=== PATIENT | female | born 1985 | race Caucasian/White ===

== ENCOUNTER 2018-08-16 10:31 | Inpatient (IN) | payer OTHER ==
--- NOTE | 2018-08-16 10:23 | PCM.PREANE ---
Preanesthetic Assessment - Procedure Proposed Procedure: for C section Hx HPV - Anesthesia/Transfusion/Family Hx Anesthesia History: Prior Anesthesia Without Reaction (thyroid surgery in the past under [place] without problems) Family History of Anesthesia Reaction: No Transfusion History: No Prior Transfusion(s) - Review of Systems General: No Symptoms Pulmonary: No Symptoms Cardiovascular: No Symptoms Gastrointestinal: No Symptoms Neurological: No Symptoms Other: Reports: None (hypothyroid, HPV) - Physical Assessment NPO Status Date: 08/16/18 NPO Status Time: 06:00 Pulse: 85 O2 Sat by Pulse Oximetry: 96 Respiratory Rate: 22 Blood Pressure: 140/85 Temperature: 36.5 C Height: 1.65 m Weight: 78.471 kg ASA Class: 2 Mental Status: Alert & Oriented x3 Airway Class: Mallampati = 2 Dentition: Reports: Normal Dentition Thyro-Mental Finger Breadths: 2 Mouth Opening Finger Breadths: 3 ROM/Head Extension: Full Lungs: Clear to Auscultation, Normal Respiratory Effort Cardiovascular: Regular Rate, Regular Rhythm, No Murmurs - Lab Values: HH=11/34 plts 240 - Allergies Allergies/Adverse Reactions: Allergies Allergy/AdvReac Type Severity Reaction Status Date / Time No Known Allergies Allergy Verified 08/11/18 07:39 - Blood Blood Available: Yes Product(s) Available: PRBC (type and screen) - Anesthesia Plan Pre-Op Medication Ordered: Antacids - Acknowledgements Anesthesia Type Planned: Spinal (Plan: Spinal for . [place] backup. Discussed with patient and fiance. All questions answered. Consent signed.) Pt an Appropriate Candidate for the Planned Anesthesia: Yes Alternatives and Risks of Anesthesia Discussed w Pt/Guardian: Yes Pt/Guardian Understands and Agrees with Anesthesia Plan: Yes PreAnesthesia Questionnaire Gastrointestinal History: Reports: Other (See Below) Other Gastrointestinal History: occ heartburn only during Endocrine/Metabolic History: Reports: Hypothyroidism - Past Surgical History Head Surgeries/Procedures: Reports: None Endocrine Surgical History: Reports: Thyroidectomy - SUBSTANCE USE Smoking Status *Q: Never Smoker Recreational Drug Use History: No - HOME MEDS Home Medications: Home Meds Levothyroxine Sodium [Synthroid] 1 tab PO DAILY 08/11/18 [History] PNV95/Ferrous Fumarate/FA [ Vitamin Tablet] 1 tab PO DAILY 08/11/18 [ History]
[2018-08-16] MEDS ORDERED: ceFAZolin 2 GM in Premix Bag 1 BAG IV ONE (11:05)
[2018-08-16] MEDS ORDERED: Sodium Chloride 0.9% 10 ML Syringe FLUSH PRN (11:05)
[2018-08-16] MEDS ORDERED: Citric Acid/Sodium Citrate Solution 30 ML Cup PO ONE (11:05)
[2018-08-16] MEDS ORDERED: Sodium Chloride 0.9% 2.5 ML Syringe FLUSH PRN (11:05)
[2018-08-16] MEDS ORDERED: Oxytocin/0.9 % Sodium Chloride 30 UNIT/500 ML BAG IV SCH (11:15)
[2018-08-16] MEDS ORDERED: Lactated Ringers 1,000 ML IV SCH ×2 (11:15→13:00)
[2018-08-16] MEDS ORDERED: Morphine PF 10 MG/10 ML SDV ONE (11:29)
[2018-08-16] MEDS ORDERED: fentaNYL 100 MCG/2 ML SDV ONE (11:29)
[2018-08-16] MEDS ORDERED: Propofol 200 MG/20 ML SDV ONE (11:29)
[2018-08-16] MEDS ORDERED: Midazolam 1 MG/ML 2 ML SDV ONE (11:29)
[2018-08-16] MEDS ORDERED: Ondansetron 4 MG/2 ML SDV ONE (11:30)
[2018-08-16] MEDS ORDERED: Phenylephrine 1% 10 MG/ML SDV ONE (11:30)
[2018-08-16] MEDS ORDERED: Oxytocin 10 Units/1 ML SDV ONE ×4 (11:30)
[2018-08-16] MEDS ORDERED: Aluminum Hydroxide/Magnesium Hydroxide/Simethicone Susp 30 ML Cup PO PRN (12:46)
[2018-08-16] MEDS ORDERED: Lanolin 100% Cream 7 GM Tube TOP PRN (12:46)
[2018-08-16] MEDS ORDERED: Acetaminophen/oxyCODONE 325-5 MG Tab PO PRN (12:46)
[2018-08-16] MEDS ORDERED: Ondansetron 4 MG/2 ML SDV IVPUSH PRN (12:46)
[2018-08-16] MEDS ORDERED: Bisacodyl 10 MG Supp RECTAL PRN (12:46)
[2018-08-16] MEDS ORDERED: diphenhydrAMINE 50 MG/ML SDV IVPUSH PRN (12:46)
[2018-08-16] MEDS ORDERED: Nalbuphine 10 MG/1 ML Vial IVPUSH PRN (12:48)
--- NOTE | 2018-08-16 12:52 | PCM.OPNOTE ---
- General Post-Op/Procedure Note Date of Surgery/Procedure: 08/16/18 Operative Procedure(s): Primary LTCS Findings: Vaible male APGARs 8, 9 weight 2490 gm. Intact placenta previa with 3 V cord. Normal appearing pelvis. Pre Op Diagnosis: 37 week IUP. Placenta previa. Polyhydramnios Post-Op Diagnosis: Same Anesthesia Technique: Spinal Primary Surgeon: Piper Burns Fluid Replacement, Intraop: 2,400 EBL in mLs: 450 Complications: none known Condition: Good
[2018-08-16] MEDS: Ketorolac 30 MG/ML SDV IVPUSH SCH ×2 (12:59→19:26)
[2018-08-16] MEDS ORDERED: Meperidine PF 25 MG/ML Syringe IVPUSH SCH (13:00)
[2018-08-16] MEDS ORDERED: Ondansetron 4 MG/2 ML SDV IVPUSH SCH (13:00)
--- NOTE | 2018-08-16 15:13 | PCM48HPAN ---
Post Anesthesia Note - EVALUATION WITHIN 48HRS OF ANESTHETIC Vital Signs in Normal Range: Yes Patient Participated in Evaluation: Yes Respiratory Function Stable: Yes Airway Patent: Yes Cardiovascular Function Stable: Yes Hydration Status Stable: Yes Pain Control Satisfactory: Yes Nausea and Vomiting Control Satisfactory: Yes Pulse Rate: 85 Resp Rate: 18 Temperature: 36.5 C Blood Pressure: 140/85 - COMMENTS/OBSERVATIONS Free Text/Narrative:: awake, alert, vitals stable. spinal resolving--moving legs. Receiving nalbuphine for pain at present. Doing well.
[2018-08-16] MEDS: Simethicone 80 MG Tab.Chew PO SCH (19:26)
--- NOTE | 2018-08-16 19:29 | OR ---
SURGEON: Piper Burns M.D. DATE OF PROCEDURE: 08/16/2018 PREOPERATIVE DIAGNOSES: 1. Thirty-seven week intrauterine . 2. Placenta previa. 3. Polyhydramnios. POSTOPERATIVE DIAGNOSES: 1. Thirty-seven week intrauterine . 2. Placenta previa. 3. Polyhydramnios. PROCEDURE: Primary low transverse section. ANESTHESIA: Spinal. ESTIMATED BLOOD LOSS: 450 mL. FLUIDS: 2400 mL crystalloid. FINDINGS: Viable male with Apgars 8 at one minute, 9 at five minutes. Weight of 2450 g, posterior placenta previa delivered with three-vessel cord. There was nuchal cord x2 that was reduced manually. Clear fluid with polyhydramnios noted. DISPOSITION: The patient to PACU, infant to nursery in stable condition. PROCEDURE IN DETAIL: Tamiko is a 32-year-old, G1, P0, at approximately 37 weeks gestational age, who presents today for scheduled primary section due to placenta previa. It is a posterior previa. Risks of the procedure have been discussed with her. Proper consent was obtained. The patient was taken to the operating room where she underwent spinal anesthetic and was then placed in the dorsal supine position with a leftward tilt. SCDs to lower extremities, Martins to gravity, and was prepped and draped in the usual sterile fashion. A time-out was performed. Anesthesia was tested and found to be adequate. A Pfannenstiel skin incision was now created and carried down to the level of the rectus fascia, which was incised in the midline, lateralized on either side sharply and bluntly. The superior aspect of the fascia was tented upward, dissected sharply and bluntly away from the underlying muscle. In a similar aspect, it was performed with the inferior aspect of the fascia. Rectus muscle was in midline. Peritoneum was entered. The rectus muscles and peritoneum were now lateralized bluntly. Uterine position and position palpated. A self-retaining retractor was gently placed. Uterovesical reflection was visualized. Bladder flap was created sharply and mobilized the bladder away from the lower uterine segment. Low transverse hysterotomy was now performed. Uterine cavity was entered using a blunt-end scalpel. Amniotomy was performed. A large amount of clear fluid was returned. Hysterotomy was lateralized bluntly. The 's head was delivered followed by anterior shoulder, posterior shoulder, and remainder of the body without difficulty. Nuchal cord x2 was noted. This reduced manually. The 's oropharynx and nares were bulb suctioned. Cord was clamped x2 and cut. was handed off to attending nursing staff. Cord arterial, cord venous, and cord blood samples were obtained. The placenta was now delivered. It does appear to be intact. No evidence of accreta. Uterine cavity was cleared of all clot and debris. Hysterotomy was repaired using 0 Vicryl in a continuous running locked fashion followed by a re-imbricating layer. Three areas of oozing were briefly ligated with [id number] sutures. Hemostasis thereafter evident. Posterior aspect of the uterus was inspected. No defects or hematomas found be forming. Tubes and ovaries appeared normal. The region was well irrigated, suction dried. Uterus was returned to the abdominal cavity. Colonic gutters were cleared of all clot and debris, well irrigated and suction dried. Hysterotomy was once again inspected and found to be hemostatic. The self-retaining retractor was now gently removed. Bladder blade was placed. Hysterotomy was once again inspected and found to be hemostatic. Rectus muscles and peritoneum were now reapproximated using 0 Vicryl in an inverted mattress suture technique. Anterior aspect of the muscle, posterior aspect of fascia closely inspected. Any areas of oozing were cauterized. The rectus fascia was now reapproximated using 0 Vicryl in continuous running fashion beginning laterally on each side and meeting in the midline. Subcutaneous tissue was well irrigated and suction dried. Any areas of oozing were cauterized. The skin edges were reapproximated using 3-0 Vicryl on a Virgil needle in a subcuticular fashion followed by half-inch Steri-Strips and Mastisol. Uterus remained firm. Sponge, instrument, and needle counts were correct x2. The patient tolerated the procedure well. She will go to PACU in stable condition and infant to nursery. MELI / MALLY /[id number]
[2018-08-16] MEDS: Docusate Sodium 100 MG Cap PO SCH (21:15)
[2018-08-17] MEDS: Simethicone 80 MG Tab.Chew PO SCH ×4 (00:27→19:36)
[2018-08-17] MEDS: Ketorolac 30 MG/ML SDV IVPUSH SCH ×3 (00:27→12:21)
--- NOTE | 2018-08-17 08:56 | PCM.PNPP ---
- General Info Date of Service: 08/17/18 Functional Status: Reports: Pain Controlled, Tolerating Diet, Ambulating - Review of Systems General: Denies: Fever, Weakness Pulmonary: Denies: Shortness of Breath Cardiovascular: Denies: Chest Pain, Palpitations, Lightheadedness Gastrointestinal: Denies: Nausea, Vomiting Genitourinary: Denies: Flank Pain Musculoskeletal: Reports: No Symptoms Skin: Reports: No Symptoms Neurological: Reports: No Symptoms Psychiatric: Reports: No Symptoms - General Info Date of Service: 08/17/18 - Patient Data Vital Signs - Most Recent: Last Vital Signs Temp 36.3 C 08/16/18 21:00 Pulse 72 08/16/18 15:30 Resp 17 08/17/18 06:00 BP 101/72 08/17/18 04:00 Pulse Ox 97 08/17/18 06:00 Weight - Most Recent: 78.471 kg I&O - Last 24 Hours: Intake & Output 08/16/18 08/17/18 08/17/18 22:59 06:59 14:59 Intake Total 2 Output Total 900 Balance 2 -900 Lab Results - Last 24 Hours: Laboratory Results - last 24 hr 08/16/18 08/16/18 08/16/18 Range/Units 11:17 11:17 12:10 WBC 10.82 (4.0-11.0) K/uL RBC 3.87 L (4.30-5.90) M/uL Hgb 11.7 L (12.0-16.0) g/dL Hct 34.3 L (36.0-46.0) % MCV 88.6 (80.0-98.0) fL MCH 30.2 (27.0-32.0) pg MCHC 34.1 (31.0-37.0) g/dL RDW Std Deviation 45.1 (28.0-62.0) fl RDW Coeff of Devon 14 (11.0-15.0) % Plt Count 240 (150-400) K/uL MPV 9.70 (7.40-12.00) fL Nucleated RBC % 0.0 /100WBC Nucleated RBCs # 0 K/uL Cord ABG pH 7.302 (7.18-7.38) Cord ABG Base Excess -4 (-10--2) Cord VBG pH 7.367 (7.25-7.45) Cord VBG Base Excess -4 (-10--2) Blood Type O NEGATIVE Antibody Screen NEGATIVE Screen (NEGATIVE) RhIG Candidate? Rhogam Indicated 08/16/18 08/17/18 Range/Units 14:10 06:06 WBC (4.0-11.0) K/uL RBC (4.30-5.90) M/uL Hgb 10.3 L (12.0-16.0) g/dL Hct 30.7 L (36.0-46.0) % MCV (80.0-98.0) fL MCH (27.0-32.0) pg MCHC (31.0-37.0) g/dL RDW Std Deviation (28.0-62.0) fl RDW Coeff of Devon (11.0-15.0) % Plt Count (150-400) K/uL MPV (7.40-12.00) fL Nucleated RBC % /100WBC Nucleated RBCs # K/uL Cord ABG pH (7.18-7.38) Cord ABG Base Excess (-10--2) Cord VBG pH (7.25-7.45) Cord VBG Base Excess (-10--2) Blood Type Antibody Screen Screen NEGATIVE (NEGATIVE) RhIG Candidate? YES Rhogam Indicated YES, BABY RH POS H Med Orders - Current: Current Medications Al Hydroxide/Mg Hydroxide (Mag-Al Plus) 30 ml PO Q8H PRN PRN Reason: Heartburn Bisacodyl (Dulcolax) 10 mg RECTAL ONETIME PRN PRN Reason: Constipation Diphenhydramine HCl (Benadryl) 25 mg IVPUSH Q6H PRN PRN Reason: Itching or Nausea Docusate Sodium (Colace) 100 mg PO BID [facility] Last Admin: 08/16/18 21:15 Dose: 100 mg Emollient Ointment (Lansinoh Hpa) 0 gm TOP ASDIRECTED PRN PRN Reason: Sore Nipples Last Admin: 08/16/18 14:50 Dose: 7 gm Lactated Ringer's (Ringers, Lactated) 1,000 mls @ 500 mls/hr IV BOLUS [facility] Last Admin: 08/16/18 11:00 Dose: 500 mls/hr Oxytocin/Sodium Chloride (Oxytocin 30 Unit/500 Ml-Ns) 30 unit in 500 mls @ 250 mls/hr IV TITRATE [facility] Lactated Ringer's (Ringers, Lactated) 1,000 mls @ 125 mls/hr IV ASDIRECTED [facility] Last Admin: 08/16/18 14:51 Dose: 125 mls/hr Ibuprofen (Motrin) 800 mg PO Q8H PRN PRN Reason: mild pain or fever Ketorolac Tromethamine (Toradol) 30 mg IVPUSH Q6H [facility] Stop: 08/17/18 13:01 Last Admin: 08/17/18 07:46 Dose: 30 mg Meperidine HCl (Demerol) 12.5 mg IVPUSH .ONCE [facility] Nalbuphine HCl (Nubain) 5 mg IVPUSH Q3H PRN PRN Reason: Pruritis Stop: 08/17/18 12:49 Last Admin: 08/16/18 14:49 Dose: 5 mg Ondansetron HCl (Zofran) 4 mg IVPUSH Q4H PRN PRN Reason: Nausea/Vomiting Ondansetron HCl (Zofran) 4 mg IVPUSH .ONCE [facility] Oxycodone/Acetaminophen (Percocet 325-5 Mg) 1 tab PO Q4H PRN PRN Reason: Pain (moderate 4-6) Oxycodone/Acetaminophen (Percocet 325-5 Mg) 2 tab PO Q4H PRN PRN Reason: Pain (moderate 4-6) Simethicone (Simethicone) 160 mg PO QID [facility] Last Admin: 08/17/18 05:51 Dose: 160 mg Sodium Chloride (Saline Flush) 10 ml FLUSH ASDIRECTED PRN PRN Reason: Keep Vein Open Sodium Chloride (Saline Flush) 2.5 ml FLUSH ASDIRECTED PRN PRN Reason: Keep Vein Open Discontinued Medications Citric Acid/Sodium Citrate (Bicitra Solution) 30 ml PO ONETIME ONE Stop: 08/16/18 11:06 Last Admin: 08/16/18 11:43 Dose: 30 ml Fentanyl (Sublimaze) Confirm Administered Dose 100 mcg .ROUTE .STK-MED ONE Stop: 08/16/18 11:30 Cefazolin Sodium/Dextrose 2 gm (/ Premix) 50 mls @ 100 mls/hr IV ONETIME ONE Stop: 08/16/18 11:34 Midazolam HCl (Versed 1 Mg/Ml) Confirm Administered Dose 2 mg .ROUTE .STK-MED ONE Stop: 08/16/18 11:30 Morphine Sulfate (Duramorph Pf) Confirm Administered Dose 10 mg .ROUTE .STK-MED ONE Stop: 08/16/18 11:30 Ondansetron HCl (Zofran) Confirm Administered Dose 4 mg .ROUTE .STK-MED ONE Stop: 08/16/18 11:31 Oxytocin (Pitocin) Confirm Administered Dose 10 unit .ROUTE .STK-MED ONE Stop: 08/16/18 11:31 Oxytocin (Pitocin) Confirm Administered Dose 10 unit .ROUTE .STK-MED ONE Stop: 08/16/18 11:31 Oxytocin (Pitocin) Confirm Administered Dose 10 unit .ROUTE .STK-MED ONE Stop: 08/16/18 11:31 Oxytocin (Pitocin) Confirm Administered Dose 10 unit .ROUTE .STK-MED ONE Stop: 08/16/18 11:31 Phenylephrine HCl (Gildardo-Synephrine) Confirm Administered Dose 10 mg .ROUTE .STK- MED ONE Stop: 08/16/18 11:31 Propofol (Diprivan 20 Ml) Confirm Administered Dose 200 mg .ROUTE .STK-MED ONE Stop: 08/16/18 11:30 - Interaction Support Person: Significant Other - Recovery Exam Fundal Tone: Firm Fundal Level: At Umbilicus Fundal Placement: Midline Lochia Amount: Scant Lochia Color: Rubra/Red Perineum Description: Intact, Minimal Bruising/Swelling Episiotomy/Laceration: None Bladder Status: Indwelling Catheter in Place Urinary Elimination: Indwelling Catheter - Exam General: Alert, Oriented Lungs: Normal Respiratory Effort Cardiovascular: Regular Rate, Regular Rhythm GI/Abdominal Exam: Soft, No Distention Extremities: Pedal Edema (trace). No: Maricel's Sign Skin: Warm, Dry, Intact Wound/Incisions: Healing Well, No Drainage. No: Erythema Neurological: No New Focal Deficit Psy/Mental Status: Alert, Normal Affect, Normal Mood - Problem List & Annotations (1) delivery delivered SNOMED Code(s): 166803833 Code(s): O82 - ENCOUNTER FOR DELIVERY WITHOUT INDICATION Status: Acute Current Visit: Yes - Problem List Review Problem List Initiated/Reviewed/Updated: Yes - My Orders Last 24 Hours: My Active Orders 08/16/18 11:05 Patient Status [ADT] Routine Notify Provider Vital Signs [RC] PRN Procedure Site Prep Instruct [RC] ASDIRECTED Up ad Silvia [RC] ASDIRECTED Vital Signs [RC] PER UNIT ROUTINE Sodium Chloride 0.9% [Saline Flush] 10 ml FLUSH ASDIRECTED PRN Sodium Chloride 0.9% [Saline Flush] 2.5 ml FLUSH ASDIRECTED PRN Peripheral IV Insertion Adult [OM.PC] Routine Schedule Procedure [COMM] Per Unit Routine Resuscitation Status Routine 08/16/18 11:15 Lactated Ringers [Ringers, Lactated] 1,000 ml IV BOLUS Oxytocin/0.9 % Sodium Chloride [Oxytocin 30 Unit/500 ML-NS] 30 unit in 500 ml IV TITRATE 08/16/18 12:46 Notify Provider Intake and Out [RC] ASDIRECTED Notify Provider Vital Signs [RC] ASDIRECTED Acetaminophen/oxyCODONE [Percocet 325-5 MG] 1 tab PO Q4H PRN Acetaminophen/oxyCODONE [Percocet 325-5 MG] 2 tab PO Q4H PRN Alum Hydrox/Mag Hydrox/Simeth [Mag-Al Plus] 30 ml PO Q8H PRN Bisacodyl [Dulcolax] 10 mg RECTAL ONETIME PRN Ibuprofen [Motrin] 800 mg PO Q8H PRN Lanolin [Lansinoh HPA] See Dose Instructions TOP ASDIRECTED PRN Ondansetron [Zofran] 4 mg IVPUSH Q4H PRN diphenhydrAMINE [Benadryl] 25 mg IVPUSH Q6H PRN Heat Therapy [OM.PC] Routine Ice Therapy [OM.PC] Routine 08/16/18 12:47 Patient Status [ADT] Routine Ambulate [RC] PER UNIT ROUTINE Communication Order [RC] PER UNIT ROUTINE Communication Order [RC] PER UNIT ROUTINE Communication Order [RC] Per Unit Routine May Shower [RC] ASDIRECTED RT Incentive Spirometry [RC] Q2HWA Vital Signs [RC] PER UNIT ROUTINE Assess Lochia [WOMSER] Per Unit Routine Assess Uterine Involution [WOMSER] Per Unit Routine Breast Pump [WOMSER] Per Unit Routine Peripheral IV Discontinue [OM.PC] Routine Sequential Compression Device [OM.PC] Per Unit Routine 08/16/18 13:00 Ketorolac [Toradol] 30 mg IVPUSH Q6H Lactated Ringers [Ringers, Lactated] 1,000 ml IV ASDIRECTED 08/16/18 18:00 Simethicone 160 mg PO QID 08/16/18 21:00 Docusate Sodium [Colace] 100 mg PO BID 08/16/18 Lunch Regular Diet [DIET] - Assessment Assessment:: POD 1 status post Primary LTCS - Plan Plan:: Continue postoperative cares, ambulate halls. May shower.
[2018-08-17] MEDS: Docusate Sodium 100 MG Cap PO SCH ×2 (16:19→21:18)
[2018-08-17] MEDS: Acetaminophen/oxyCODONE 325-5 MG Tab PO PRN ×2 (19:37→23:40)
[2018-08-17] MEDS: Ibuprofen 800 MG Tab PO PRN (21:18)
[2018-08-18] MEDS: Simethicone 80 MG Tab.Chew PO SCH ×4 (01:17→17:16)
[2018-08-18] MEDS: Acetaminophen/oxyCODONE 325-5 MG Tab PO PRN ×4 (04:28→17:17)
--- NOTE | 2018-08-18 08:04 | PCM.PNPP ---
<Jessy Hinson - Last Filed: 08/18/18 08:03> - General Info Date of Service: 08/18/18 Functional Status: Reports: Pain Controlled, Tolerating Diet, Ambulating, Urinating - Review of Systems General: Denies: Fever, Weakness, Fatigue Pulmonary: Denies: Shortness of Breath, Pleuritic Chest Pain, Cough Cardiovascular: Denies: Chest Pain, Palpitations, Dyspnea on Exertion Gastrointestinal: Denies: Abdominal Pain Genitourinary: Denies: Dysuria - General Info Date of Service: 08/18/18 - Patient Data Vital Signs - Most Recent: Last Vital Signs Temp 36.1 C 08/18/18 05:00 Pulse 76 08/18/18 05:00 Resp 17 08/18/18 05:00 BP 119/72 08/18/18 05:00 Pulse Ox 100 08/18/18 05:00 Weight - Most Recent: 78.471 kg Med Orders - Current: Current Medications Al Hydroxide/Mg Hydroxide (Mag-Al Plus) 30 ml PO Q8H PRN PRN Reason: Heartburn Bisacodyl (Dulcolax) 10 mg RECTAL ONETIME PRN PRN Reason: Constipation Diphenhydramine HCl (Benadryl) 25 mg IVPUSH Q6H PRN PRN Reason: Itching or Nausea Docusate Sodium (Colace) 100 mg PO BID [facility] Last Admin: 08/17/18 21:18 Dose: 100 mg Emollient Ointment (Lansinoh Hpa) 0 gm TOP ASDIRECTED PRN PRN Reason: Sore Nipples Last Admin: 08/16/18 14:50 Dose: 7 gm Lactated Ringer's (Ringers, Lactated) 1,000 mls @ 500 mls/hr IV BOLUS [facility] Last Admin: 08/16/18 11:00 Dose: 500 mls/hr Oxytocin/Sodium Chloride (Oxytocin 30 Unit/500 Ml-Ns) 30 unit in 500 mls @ 250 mls/hr IV TITRATE [facility] Lactated Ringer's (Ringers, Lactated) 1,000 mls @ 125 mls/hr IV ASDIRECTED [facility] Last Admin: 08/16/18 14:51 Dose: 125 mls/hr Ibuprofen (Motrin) 800 mg PO Q8H PRN PRN Reason: mild pain or fever Last Admin: 08/17/18 21:18 Dose: 800 mg Meperidine HCl (Demerol) 12.5 mg IVPUSH .ONCE [facility] Ondansetron HCl (Zofran) 4 mg IVPUSH Q4H PRN PRN Reason: Nausea/Vomiting Ondansetron HCl (Zofran) 4 mg IVPUSH .ONCE [facility] Oxycodone/Acetaminophen (Percocet 325-5 Mg) 1 tab PO Q4H PRN PRN Reason: Pain (moderate 4-6) Last Admin: 08/18/18 04:28 Dose: 1 tab Oxycodone/Acetaminophen (Percocet 325-5 Mg) 2 tab PO Q4H PRN PRN Reason: Pain (moderate 4-6) Simethicone (Simethicone) 160 mg PO QID [facility] Last Admin: 08/18/18 05:53 Dose: 160 mg Sodium Chloride (Saline Flush) 10 ml FLUSH ASDIRECTED PRN PRN Reason: Keep Vein Open Sodium Chloride (Saline Flush) 2.5 ml FLUSH ASDIRECTED PRN PRN Reason: Keep Vein Open Discontinued Medications Citric Acid/Sodium Citrate (Bicitra Solution) 30 ml PO ONETIME ONE Stop: 08/16/18 11:06 Last Admin: 08/16/18 11:43 Dose: 30 ml Fentanyl (Sublimaze) Confirm Administered Dose 100 mcg .ROUTE .STK-MED ONE Stop: 08/16/18 11:30 Cefazolin Sodium/Dextrose 2 gm (/ Premix) 50 mls @ 100 mls/hr IV ONETIME ONE Stop: 08/16/18 11:34 Ketorolac Tromethamine (Toradol) 30 mg IVPUSH Q6H [facility] Stop: 08/17/18 13:01 Last Admin: 08/17/18 12:21 Dose: 30 mg Midazolam HCl (Versed 1 Mg/Ml) Confirm Administered Dose 2 mg .ROUTE .STK-MED ONE Stop: 08/16/18 11:30 Morphine Sulfate (Duramorph Pf) Confirm Administered Dose 10 mg .ROUTE .STK-MED ONE Stop: 08/16/18 11:30 Nalbuphine HCl (Nubain) 5 mg IVPUSH Q3H PRN PRN Reason: Pruritis Stop: 08/17/18 12:49 Last Admin: 01/22/19 14:49 Dose: 5 mg Ondansetron HCl (Zofran) Confirm Administered Dose 4 mg .ROUTE .STK-MED ONE Stop: 08/16/18 11:31 Oxytocin (Pitocin) Confirm Administered Dose 10 unit .ROUTE .STK-MED ONE Stop: 08/16/18 11:31 Oxytocin (Pitocin) Confirm Administered Dose 10 unit .ROUTE .STK-MED ONE Stop: 08/16/18 11:31 Oxytocin (Pitocin) Confirm Administered Dose 10 unit .ROUTE .STK-MED ONE Stop: 08/16/18 11:31 Oxytocin (Pitocin) Confirm Administered Dose 10 unit .ROUTE .STK-MED ONE Stop: 08/16/18 11:31 Phenylephrine HCl (Gildardo-Synephrine) Confirm Administered Dose 10 mg .ROUTE .STK- MED ONE Stop: 08/16/18 11:31 Propofol (Diprivan 20 Ml) Confirm Administered Dose 200 mg .ROUTE .STK-MED ONE Stop: 08/16/18 11:30 - Interaction Infant Disposition, : [place] in Room with Family Interaction: Holding Infant Feeding: Attempted ; Nursed Fair/Poor, Encouraged to Breastfeed Support Person: Significant Other - Recovery Exam Fundal Tone: Firm Fundal Level: 1 Fingerbreadths Below Umbilicus Fundal Placement: Midline Lochia Amount: Scant Lochia Color: Rubra/Red Perineum Description: Intact, Minimal Bruising/Swelling Episiotomy/Laceration: None Bladder Status: Voiding Urinary Elimination: Indwelling Catheter - Exam Neck: Supple Lungs: Clear to Auscultation, Normal Respiratory Effort Cardiovascular: Regular Rate, Regular Rhythm GI/Abdominal Exam: Normal Bowel Sounds, Soft, Non-Tender, No Distention, No Mass Extremities: Normal Inspection, Non-Tender, Normal Capillary Refill, Pedal Edema (trace) Skin: Warm, Dry, Intact - Problem List Review Problem List Initiated/Reviewed/Updated: Yes - Assessment Assessment:: POD 2 status post Primary LTCS - Plan Plan:: Discharge instructions reviewed. Pelvic rest for 6 weeks. Rx for Percocet to use as needed for pain. Continue PNV while breast feeding. No lifting greater than 15lbs for 6 weeks. Instructed patient to call if she develops fever greater than 101 or bleeding through a large pad an hour. F/U with [facility] in 2 and 6 weeks. <Piper Burns R - Last Filed: 08/18/18 08:58> - Patient Data Vital Signs - Most Recent: Last Vital Signs Temp 36.1 C 08/18/18 05:00 Pulse 76 08/18/18 05:00 Resp 17 08/18/18 05:00 BP 119/72 08/18/18 05:00 Pulse Ox 100 08/18/18 05:00 Med Orders - Current: Current Medications Al Hydroxide/Mg Hydroxide (Mag-Al Plus) 30 ml PO Q8H PRN PRN Reason: Heartburn Bisacodyl (Dulcolax) 10 mg RECTAL ONETIME PRN PRN Reason: Constipation Diphenhydramine HCl (Benadryl) 25 mg IVPUSH Q6H PRN PRN Reason: Itching or Nausea Docusate Sodium (Colace) 100 mg PO BID [facility] Last Admin: 08/18/18 08:30 Dose: 100 mg Emollient Ointment (Lansinoh Hpa) 0 gm TOP ASDIRECTED PRN PRN Reason: Sore Nipples Last Admin: 08/16/18 14:50 Dose: 7 gm Lactated Ringer's (Ringers, Lactated) 1,000 mls @ 500 mls/hr IV BOLUS [facility] Last Admin: 08/16/18 11:00 Dose: 500 mls/hr Oxytocin/Sodium Chloride (Oxytocin 30 Unit/500 Ml-Ns) 30 unit in 500 mls @ 250 mls/hr IV TITRATE [facility] Lactated Ringer's (Ringers, Lactated) 1,000 mls @ 125 mls/hr IV ASDIRECTED [facility] Last Admin: 08/16/18 14:51 Dose: 125 mls/hr Ibuprofen (Motrin) 800 mg PO Q8H PRN PRN Reason: mild pain or fever Last Admin: 08/18/18 08:28 Dose: 800 mg Meperidine HCl (Demerol) 12.5 mg IVPUSH .ONCE [facility] Ondansetron HCl (Zofran) 4 mg IVPUSH Q4H PRN PRN Reason: Nausea/Vomiting Ondansetron HCl (Zofran) 4 mg IVPUSH .ONCE [facility] Oxycodone/Acetaminophen (Percocet 325-5 Mg) 1 tab PO Q4H PRN PRN Reason: Pain (moderate 4-6) Last Admin: 08/18/18 08:30 Dose: 1 tab Oxycodone/Acetaminophen (Percocet 325-5 Mg) 2 tab PO Q4H PRN PRN Reason: Pain (moderate 4-6) Simethicone (Simethicone) 160 mg PO QID [facility] Last Admin: 08/18/18 05:53 Dose: 160 mg Sodium Chloride (Saline Flush) 10 ml FLUSH ASDIRECTED PRN PRN Reason: Keep Vein Open Sodium Chloride (Saline Flush) 2.5 ml FLUSH ASDIRECTED PRN PRN Reason: Keep Vein Open Discontinued Medications Citric Acid/Sodium Citrate (Bicitra Solution) 30 ml PO ONETIME ONE Stop: 08/16/18 11:06 Last Admin: 08/16/18 11:43 Dose: 30 ml Fentanyl (Sublimaze) Confirm Administered Dose 100 mcg .ROUTE .STK-MED ONE Stop: 08/16/18 11:30 Cefazolin Sodium/Dextrose 2 gm (/ Premix) 50 mls @ 100 mls/hr IV ONETIME ONE Stop: 08/16/18 11:34 Ketorolac Tromethamine (Toradol) 30 mg IVPUSH Q6H [facility] Stop: 08/17/18 13:01 Last Admin: 08/17/18 12:21 Dose: 30 mg Midazolam HCl (Versed 1 Mg/Ml) Confirm Administered Dose 2 mg .ROUTE .STK-MED ONE Stop: 08/16/18 11:30 Morphine Sulfate (Duramorph Pf) Confirm Administered Dose 10 mg .ROUTE .STK-MED ONE Stop: 08/16/18 11:30 Nalbuphine HCl (Nubain) 5 mg IVPUSH Q3H PRN PRN Reason: Pruritis Stop: 08/17/18 12:49 Last Admin: 08/16/18 14:49 Dose: 5 mg Ondansetron HCl (Zofran) Confirm Administered Dose 4 mg .ROUTE .STK-MED ONE Stop: 08/16/18 11:31 Oxytocin (Pitocin) Confirm Administered Dose 10 unit .ROUTE .STK-MED ONE Stop: 08/16/18 11:31 Oxytocin (Pitocin) Confirm Administered Dose 10 unit .ROUTE .STK-MED ONE Stop: 08/16/18 11:31 Oxytocin (Pitocin) Confirm Administered Dose 10 unit .ROUTE .STK-MED ONE Stop: 08/16/18 11:31 Oxytocin (Pitocin) Confirm Administered Dose 10 unit .ROUTE .STK-MED ONE Stop: 08/16/18 11:31 Phenylephrine HCl (Gildardo-Synephrine) Confirm Administered Dose 10 mg .ROUTE .STK- MED ONE Stop: 08/16/18 11:31 Propofol (Diprivan 20 Ml) Confirm Administered Dose 200 mg .ROUTE .STK-MED ONE Stop: 08/16/18 11:30 - Problem List & Annotations (1) delivery delivered SNOMED Code(s): 431559511 Code(s): O82 - ENCOUNTER FOR DELIVERY WITHOUT INDICATION Status: Acute Current Visit: Yes - Plan Plan:: Patient seen and examined-agree with above
[2018-08-18] MEDS: Ibuprofen 800 MG Tab PO PRN (08:28)
[2018-08-18] MEDS: Docusate Sodium 100 MG Cap PO SCH (08:30)
[2018-08-18 16:32] VITALS: BP 116/72
== END 2018-08-18 16:25 | disposition home or self-care (01) | DRG 787 ==
LOC: MW.OB 10:31
PROVIDERS: ADMIT Obstetrics & Gynecology; ATTEND Obstetrics & Gynecology
PROC: 10D00Z1 Extraction of Products of Conception, Low, Open Approach (ICD-10-PCS; principal; 2018-08-16)
PROC: 6A550ZT Pheresis of Cord Blood Stem Cells, Single (ICD-10-PCS; principal; 2018-08-16)
PROC: 3E0234Z Introduction of Serum, Toxoid and Vaccine into Muscle, Percutaneous Approach (ICD-10-PCS; 2018-08-16)
DX: O44.03 Complete placenta previa NOS or without hemorrhage, third trimester (principal); O98.32 Other infections with a predominantly sexual mode of transmission complicating childbirth; O99.284 Endocrine, nutritional and metabolic diseases complicating childbirth; O40.3XX0 Polyhydramnios, third trimester, not applicable or unspecified; A63.0 Anogenital (venereal) warts; Z3A.37 37 weeks gestation of pregnancy; Z37.0 Single live birth; E89.0 Postprocedural hypothyroidism; O26.893 Other specified pregnancy related conditions, third trimester; Z67.41 Type O blood, Rh negative; Z79.899 Other long term (current) drug therapy
CPT/HCPCS: 36415; 59025; 82803; 85014; 85018; 85027; 85460; 86850; 86900; 86901; A9270-GY; J1885; J2250; J2270; J2300; J2370; J2405; J2590; J2704; J2792; J3010; J7120

== ENCOUNTER 2021-05-05 05:13 | Inpatient (IN) | payer BC ==
[2021-05-05] MEDS: Lactated Ringers 1,000 ML IV SCH ×3 (05:40→07:25)
[2021-05-05] MEDS ORDERED: Citric Acid/Sodium Citrate Solution 30 ML Cup PO ONE (06:36)
[2021-05-05] MEDS ORDERED: ceFAZolin 2 GM in Premix Bag 1 BAG IV ONE (06:36)
[2021-05-05] MEDS ORDERED: Sodium Chloride 0.9% 2.5 ML Syringe FLUSH PRN (06:36)
[2021-05-05] MEDS ORDERED: Sodium Chloride 0.9% 10 ML Syringe FLUSH PRN (06:36)
[2021-05-05] MEDS ORDERED: Sodium Chloride 0.9% 10 ML SDV IV PRN (06:36)
[2021-05-05] MEDS ORDERED: Oxytocin/0.9 % Sodium Chloride 30 UNIT/500 ML BAG IV SCH (06:45)
[2021-05-05] MEDS ORDERED: Morphine PF 10 MG/10 ML SDV ONE (07:28)
--- NOTE | 2021-05-05 07:57 | PCM.PREANE ---
Preanesthetic Assessment - Anesthesia/Transfusion/Family Hx Anesthesia History: Prior Anesthesia Without Reaction Family History of Anesthesia Reaction: No Transfusion History: No Prior Transfusion(s) - Review of Systems General: No Symptoms, Other (Thyroidectomy ) Pulmonary: No Symptoms (Non Smoker) Cardiovascular: No Symptoms Gastrointestinal: No Symptoms (GERD with ) Neurological: No Symptoms Other: Reports: None - Physical Assessment NPO Status Date: 05/05/21 NPO Status Time: 00:00 Height: 1.68 m Weight: 81.647 kg ASA Class: 2 Mental Status: Alert & Oriented x3 Airway Class: Mallampati = 2 Dentition: Reports: Normal Dentition Thyro-Mental Finger Breadths: 3 Mouth Opening Finger Breadths: 3 ROM/Head Extension: Full Lungs: Clear to Auscultation, Normal Respiratory Effort Cardiovascular: Regular Rate, Regular Rhythm - Lab Values: Laboratory Last Values WBC 8.47 K/uL (4.0-11.0) 05/05/21 05:30 RBC 4.10 M/uL (4.30-5.90) L 05/05/21 05:30 Hgb 12.5 g/dL (12.0-16.0) 05/05/21 05:30 Hct 37.3 % (36.0-46.0) 05/05/21 05:30 MCV 91.0 fL (80.0-98.0) 05/05/21 05:30 MCH 30.5 pg (27.0-32.0) 05/05/21 05:30 MCHC 33.5 g/dL (31.0-37.0) 05/05/21 05:30 RDW Std Deviation 45.7 fl (28.0-62.0) 05/05/21 05:30 RDW Coeff of [place] 14 % (11.0-15.0) 05/05/21 05:30 Plt Count 244 K/uL (150-400) 05/05/21 05:30 MPV 10.60 fL (7.40-12.00) 05/05/21 05:30 Blood Type O NEGATIVE 05/05/21 05:30 Antibody Screen NEGATIVE 05/05/21 05:30 - Allergies Allergies/Adverse Reactions: Allergies Allergy/AdvReac Type Severity Reaction Status Date / Time No Known Allergies Allergy Verified 04/29/21 09:37 - Blood Blood Available: Yes Product(s) Available: PRBC - Anesthesia Plan Pre-Op Medication Ordered: None - Acknowledgements Anesthesia Type Planned: Spinal Pt an Appropriate Candidate for the Planned Anesthesia: Yes Alternatives and Risks of Anesthesia Discussed w Pt/Guardian: Yes Pt/Guardian Understands and Agrees with Anesthesia Plan: Yes PreAnesthesia Questionnaire HEENT History: Reports: None, Other (See Below) Other HEENT History: wears glasses Cardiovascular History: Reports: None Respiratory History: Reports: None Gastrointestinal History: Reports: GERD Genitourinary History: Reports: None 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: Musculoskeletal History: Reports: None Neurological History: Reports: None Psychiatric History: Reports: None Endocrine/Metabolic History: Reports: Hypothyroidism Hematologic History: Reports: None Immunologic History: Reports: None Oncologic (Cancer) History: Reports: None Dermatologic History: Reports: None - Past Surgical History Head Surgeries/Procedures: Reports: None HEENT Surgical History: Reports: None Cardiovascular Surgical History: Reports: None Respiratory Surgical History: Reports: None GI Surgical History: Reports: None Female Surgical History: Reports: Section Endocrine Surgical History: Reports: Thyroidectomy Neurological Surgical History: Reports: None Musculoskeletal Surgical History: Reports: None Oncologic Surgical History: Reports: None Dermatological Surgical History: Reports: None - SUBSTANCE USE Tobacco Use Status *Q: Never Tobacco User Recreational Drug Use History: No - HOME MEDS Home Medications: Home Meds Calcium Carbonate [Tums] 1 tab.chew CHEW ASDIRECTED PRN 04/29/21 [History] Ferrous Sulfate [Iron] 1 tab PO DAILY 04/29/21 [History] Levothyroxine Sodium [Levo-T] 150 mcg PO DAILY 04/29/21 [History] Pnv No.95/Ferrous Fum/Folic AC [ Vitamin Tablet] 1 tab PO DAILY 04/29/21 [History] Ranitidine [Zantac] 1 tab PO DAILY PRN 04/29/21 [History] - CURRENT (IN HOUSE) MEDS Current Meds: Current Medications Oxytocin/Sodium Chloride (Oxytocin 30 Unit In Ns 0.9% 500 Ml Premix) 30 unit in 500 mls @ 250 mls/hr IV TITRATE [facility] Lactated Ringer's (Ringers, Lactated) 1,000 mls @ 500 mls/hr IV BOLUS [facility] Last Admin: 05/05/21 07:25 Dose: 999 mls/hr Documented by: Sodium Chloride (Sodium Chloride 0.9% 10 Ml Syringe) 10 ml FLUSH ASDIRECTED PRN PRN Reason: Keep Vein Open Sodium Chloride (Sodium Chloride 0.9% 2.5 Ml Syringe) 2.5 ml FLUSH ASDIRECTED PRN PRN Reason: Keep Vein Open Sodium Chloride (Sodium Chloride 0.9% 10 Ml Sdv) 10 ml IV ASDIRECTED PRN PRN Reason: IV Use Discontinued Medications Citric Acid/Sodium Citrate (Citric Acid/Sodium Citrate Solution 30 Ml Cup) 30 ml PO ONETIME ONE Stop: 05/05/21 06:37 Cefazolin Sodium/Dextrose 2 gm (/ Premix) 50 mls @ 100 mls/hr IV ONETIME ONE Stop: 05/05/21 07:05 Morphine Sulfate (Morphine Pf 10 Mg/10 Ml Sdv) Confirm Administered Dose 10 mg .ROUTE .STK-MED ONE Stop: 05/05/21 07:29
[2021-05-05] MEDS ORDERED: Ondansetron 4 MG/2 ML SDV ONE (09:12)
[2021-05-05] MEDS ORDERED: Glycopyrrolate 0.2 MG/ML SDV ONE (09:12)
[2021-05-05] MEDS ORDERED: ePHEDrine 50 MG/ML SDV ONE (09:12)
[2021-05-05] MEDS ORDERED: Sodium Chloride 0.9% 20 ML ONE (09:13)
[2021-05-05] MEDS ORDERED: Lanolin 100% Cream 7 GM Tube TOP PRN (09:46)
[2021-05-05] MEDS ORDERED: Ondansetron 4 MG/2 ML SDV IVPUSH PRN (09:46)
[2021-05-05] MEDS ORDERED: Acetaminophen/oxyCODONE 325-5 MG Tab PO PRN (09:46)
[2021-05-05] MEDS ORDERED: Methylergonovine 0.2 MG/1 ML Amp IM PRN (09:46)
[2021-05-05] MEDS ORDERED: Misoprostol 200 MCG Tab RECTAL PRN (09:46)
[2021-05-05] MEDS ORDERED: diphenhydrAMINE 50 MG/ML SDV IVPUSH PRN (09:46)
[2021-05-05] MEDS ORDERED: Tranexamic Acid 1,000 MG in Sodium Chloride 0.9% 100 ML IV PRN (09:46)
[2021-05-05] MEDS ORDERED: Oxytocin 10 Units/1 ML SDV IM PRN (09:46)
[2021-05-05] MEDS ORDERED: Bisacodyl 10 MG Supp RECTAL PRN (09:46)
--- NOTE | 2021-05-05 09:57 | PCM.OPNOTE ---
- General Post-Op/Procedure Note Date of Surgery/Procedure: 05/05/21 Operative Procedure(s): Repeat LTCS Findings: Viable male APGARs 7, 9 weight 6 lb 9 oz. Delivery intact placenta with 3V cord Pre Op Diagnosis: 39 week IUP. previous LTCS, desires repeat Post-Op Diagnosis: Same Anesthesia Technique: Spinal Primary Surgeon: Piper Burns Fluid Replacement, Intraop: 2,200 EBL in mLs: 800 Complications: none known Condition: Stable Free Text/Narrative:: Dictation [id number]
[2021-05-05] MEDS ORDERED: Lactated Ringers 1,000 ML IV SCH (10:00)
--- NOTE | 2021-05-05 10:23 | PCM48HPAN ---
Post Anesthesia Note - EVALUATION WITHIN 48HRS OF ANESTHETIC Vital Signs in Normal Range: Yes Patient Participated in Evaluation: Yes Respiratory Function Stable: Yes Airway Patent: Yes Cardiovascular Function Stable: Yes Hydration Status Stable: Yes Pain Control Satisfactory: Yes Nausea and Vomiting Control Satisfactory: Yes Mental Status Recovered: Yes Vital Signs: Last Vital Signs Temp 35.3 C L 05/05/21 09:50 Pulse 77 05/05/21 09:50 Resp 20 05/05/21 09:50 BP 99/60 05/05/21 09:50 Pulse Ox 100 05/05/21 09:50
--- NOTE | 2021-05-05 10:23 | PCM.POSTAN ---
POST ANESTHESIA ASSESSMENT - MENTAL STATUS Mental Status: Alert, Oriented - VITAL SIGNS Vital Signs: Last Vital Signs Temp 35.3 C L 05/05/21 09:50 Pulse 77 05/05/21 09:50 Resp 20 05/05/21 09:50 BP 99/60 05/05/21 09:50 Pulse Ox 100 05/05/21 09:50 - RESPIRATORY Respiratory Status: Respiratory Rate WNL, Airway Patent, O2 Saturation Stable - CARDIOVASCULAR CV Status: Pulse Rate WNL, Blood Pressure Stable - GASTROINTESTINAL GI Status: No Symptoms - PAIN Pain Score: 0 - POST OP HYDRATION Hydration Status: Adequate & Stable
[2021-05-05] MEDS: Ketorolac 30 MG/ML SDV IVPUSH SCH ×2 (10:46→18:52)
--- NOTE | 2021-05-05 11:05 | OR ---
SURGEON: Piper Burns M.D. DATE OF PROCEDURE: 05/05/2021 PREOPERATIVE DIAGNOSES: 1. Thirty-nine week intrauterine . 2. Previous section, desires repeat. POSTOPERATIVE DIAGNOSES: 1. Thirty-nine week intrauterine . 2. Previous section, desires repeat. PROCEDURE: Repeat low transverse section. PRIMARY SURGEON: Piper Burns M.D. ANESTHESIA: Spinal. ESTIMATED BLOOD LOSS: 300 mL. FLUIDS: 2200 mL of crystalloid in OR. COMPLICATIONS: None known. FINDINGS: Viable male. scores 7 at one minute and 9 at five minutes. Weight of 6 pounds 9 ounces. Delivery, intact placenta, 3-vessel cord. DISPOSITION: Infant to nursery, mom in LDRP. PROCEDURE DETAILS: Tamiko is a 35-year-old G2, P1 at 39 weeks gestation who presents this morning for scheduled repeat delivery. Risks of procedure have been discussed. Proper consent was obtained. The patient was taken to the operating room where she underwent spinal anesthetic, was then placed in dorsal supine position with a leftward tilt. SCDs to the lower extremities. Martins to gravity. She was prepped and draped in the usual sterile fashion. Received Ancef prophylactically. Time-out was performed. The patient after being prepped and draped in usual sterile fashion, anesthesia was tested and found to be adequate. Previous Pfannenstiel scar was now excised. Subcutaneous tissue was incised down to the level of rectus fascia. There was a significant amount of dense scar tissue already noted along the subcutaneous tissue. The fascia was entered along the midline and lateralized on either side sharply and bluntly using Metzenbaum scissors. Again, there was very little pliancy to the tissue. It was very stiff and thick with scar tissue. Superior aspect of fascia was tented upward, dissected sharply and bluntly away from underlying muscles. In similar aspect, this was performed on the inferior aspect of the fascia. Rectus muscles were in midline. Peritoneum was entered bluntly with hemostat. Rectus muscles and peritoneum were now lateralized bluntly. Once again, I felt that the tissue was very tight, so did extend the incision on either side slightly allowing for more room to maneuver. A self-retaining retractor was now gently placed. Uterovesical reflection was visualized. Bladder was mobilized away from lower uterine segment. There were quite a few perforating end bladder vessels along the anterior lower uterine segment that were fairly friable upon mobilizing the bladder away from lower uterine segment. Low transverse hysterotomy was now performed. There again while entering this, a number of perforating vessels were noted and with more than usual bleeding noted with entry into the lower uterine segment. Uterine cavity was entered with blunt end of scalpel. Hysterotomy was lateralized bluntly. Amniotomy was performed. Clear fluid was returned. The infant's head was flexed. Fundal pressure was applied. The head was not easily delivering. Once again, the tissue was quite stiff. Therefore, I performed a Maylard incision on the left side. At this point, I was able to deliver 's head followed by anterior shoulder, posterior shoulder, and remainder of the body without difficulty. The 's oropharynx and nares were bulb suctioned, and infant was stimulated. After a delay, cord was clamped x2 and cut. Infant was handed off to attending nursing staff crying. Cord arterial, cord venous, and cord blood sampling obtained. The placenta was now delivered. Uterine cavity was cleared of all clot and debris. Hysterotomy was repaired using 0 Vicryl in continuous running locked fashion followed by a re-imbricating layer. Area of bleeding along the midline was plicated with [id number] suture. Area of persistent bleeding along the left lateral edge was now plicated with two figure- of-eight sutures. Hemostasis appeared evident. Attention now turned to the vesicular perforating vessels. Using a 3-0 Vicryl on SH needle, I was able to perform a [id number] suture and then run this along the perforating vessel. Hemostasis after that was much more evident. Colonic gutters cleared of all clots and debris, well irrigated and suction dried. The uterus was now mobilized easily from the cavity. They were again well irrigated and suction dried. Hysterotomy was once again inspected, found to be hemostatic. Self-retaining retractor now gently removed. Bladder blade was placed. Hysterotomy was once again inspected, found to be hemostatic. At this juncture, the rectus muscle and peritoneum were now reapproximated using 0 Vicryl in continuous running locked fashion. Area of Maylard incision was now reapproximated using 0 Vicryl. Anterior aspect of the muscle, posterior aspect of the fascia were closely inspected. Any areas of oozing were cauterized. The rectus fascia was reapproximated using 0 Vicryl in continuous running fashion beginning laterally on either side and meeting in the midline. Subcutaneous tissues well irrigated and suction dried. Any areas of oozing were cauterized. Deep subcutaneous tissues reapproximated with 3-0 plain followed by reapproximation of skin using 3-0 Vicryl on a Virgil needle in subcuticular fashion followed by half-inch Steri-Strips with Mastisol for re-imbrication. Uterus remained firm. Sponge, instrument, and needle counts were correct x2. The patient tolerated the procedure well overall. She will go to PACU in stable condition. MELI / MALLY /[id number]
[2021-05-05] MEDS ORDERED: Oxytocin 10 Units/1 ML SDV ONE (12:57)
[2021-05-05] MEDS: Docusate Sodium 100 MG Cap PO SCH (20:42)
[2021-05-05] MEDS: Acetaminophen/oxyCODONE 325-5 MG Tab PO PRN (20:42)
[2021-05-05] MEDS: Calcium Carbonate 500 MG Tab.Chew PO PRN (20:43)
[2021-05-06] MEDS: Acetaminophen/oxyCODONE 325-5 MG Tab PO PRN ×5 (03:09→23:28)
[2021-05-06] MEDS: Calcium Carbonate 500 MG Tab.Chew PO PRN (04:17)
[2021-05-06] MEDS: Docusate Sodium 100 MG Cap PO SCH ×2 (09:04→21:57)
[2021-05-06] MEDS ORDERED: Ketorolac 30 MG/ML SDV IVPUSH ONE (11:41)
[2021-05-06] MEDS ORDERED: Ketorolac 30 MG/ML SDV ONE (11:56)
--- NOTE | 2021-05-06 12:34 | PCM.PNPP ---
- General Info Date of Service: 05/06/21 Functional Status: Reports: Pain Controlled, Tolerating Diet, Ambulating, Urinating - Review of Systems General: Reports: Fatigue. Denies: Fever, Weakness Pulmonary: Denies: Shortness of Breath Cardiovascular: Denies: Chest Pain, Palpitations, Lightheadedness Gastrointestinal: Denies: Abdominal Pain Genitourinary: Denies: Flank Pain Musculoskeletal: Reports: No Symptoms Skin: Reports: No Symptoms Neurological: Reports: No Symptoms Psychiatric: Reports: No Symptoms - General Info Date of Service: 05/06/21 - Patient Data Vital Signs - Most Recent: Last Vital Signs Temp 36.5 C 05/06/21 12:00 Pulse 84 05/06/21 12:00 Resp 18 05/06/21 12:00 BP 112/61 05/06/21 12:00 Pulse Ox 96 05/06/21 12:00 Weight - Most Recent: 81.647 kg I&O - Last 24 Hours: Intake & Output 05/05/21 05/06/21 05/06/21 22:59 06:59 14:59 Intake Total 1200 Output Total 800 900 Balance 400 -900 Lab Results - Last 24 Hours: Laboratory Results - last 24 hr 05/05/21 05/06/21 Range/Units 08:55 04:43 Hgb 8.3 L (12.0-16.0) g/dL Hct 25.7 L (36.0-46.0) % Cord ABG pH 7.305 (7.18-7.38) Cord ABG Base Excess -0.8 H (-10--2) Cord VBG pH 7.402 (7.25-7.45) Cord VBG Base Excess 0.4 H (-10--2) Med Orders - Current: Current Medications Bisacodyl (Bisacodyl 10 Mg Supp) 10 mg RECTAL ONETIME PRN PRN Reason: Constipation Calcium Carbonate/Glycine (Calcium Carbonate 500 Mg Tab.Chew) 1,000 mg PO Q2HR PRN PRN Reason: Indigestion Last Admin: 05/06/21 04:17 Dose: 1,000 mg Documented by: Diphenhydramine HCl (Diphenhydramine 50 Mg/Ml Sdv) 25 mg IVPUSH Q6H PRN PRN Reason: Itching or Nausea Last Admin: 05/05/21 11:20 Dose: 25 mg Documented by: Docusate Sodium (Docusate Sodium 100 Mg Cap) 100 mg PO BID [facility] Last Admin: 05/06/21 09:04 Dose: 100 mg Documented by: Emollient Ointment (Lanolin 100% Cream 7 Gm Tube) 0 gm TOP ASDIRECTED PRN PRN Reason: Sore Nipples Oxytocin/Sodium Chloride (Oxytocin 30 Unit In Ns 0.9% 500 Ml Premix) 30 unit in 500 mls @ 250 mls/hr IV TITRATE [facility] Lactated Ringer's (Ringers, Lactated) 1,000 mls @ 500 mls/hr IV BOLUS [facility] Last Admin: 05/05/21 07:25 Dose: 999 mls/hr Documented by: Lactated Ringer's (Ringers, Lactated) 1,000 mls @ 125 mls/hr IV ASDIRECTED [facility] Tranexamic Acid 1,000 mg/ (Sodium Chloride) 110 mls @ 660 mls/hr IV ONETIME PRN PRN Reason: Bleeding Ibuprofen (Ibuprofen 800 Mg Tab) 800 mg PO Q8H PRN PRN Reason: Cramping Methylergonovine Maleate (Methylergonovine 0.2 Mg/1 Ml Amp) 0.2 mg IM ONETIME PRN PRN Reason: Excessive Vaginal Bleeding Misoprostol (Misoprostol 200 Mcg Tab) 1,000 mcg RECTAL ONETIME PRN PRN Reason: excessive bleeding Ondansetron HCl (Ondansetron 4 Mg/2 Ml Sdv) 4 mg IVPUSH Q4H PRN PRN Reason: Nausea/Vomiting Oxycodone/Acetaminophen (Acetaminophen/Oxycodone 325-5 Mg Tab) 1 tab PO Q4H PRN PRN Reason: Pain (severe 7-10) Last Admin: 05/06/21 09:04 Dose: 1 tab Documented by: Oxycodone/Acetaminophen (Acetaminophen/Oxycodone 325-5 Mg Tab) 2 tab PO Q4H PRN PRN Reason: Pain (severe 7-10) Oxytocin (Oxytocin 10 Units/1 Ml Sdv) 10 unit IM ASDIRECTED PRN PRN Reason: Excessive Vaginal Bleeding Sodium Chloride (Sodium Chloride 0.9% 10 Ml Syringe) 10 ml FLUSH ASDIRECTED PRN PRN Reason: Keep Vein Open Sodium Chloride (Sodium Chloride 0.9% 2.5 Ml Syringe) 2.5 ml FLUSH ASDIRECTED PRN PRN Reason: Keep Vein Open Sodium Chloride (Sodium Chloride 0.9% 10 Ml Sdv) 10 ml IV ASDIRECTED PRN PRN Reason: IV Use Discontinued Medications Citric Acid/Sodium Citrate (Citric Acid/Sodium Citrate Solution 30 Ml Cup) 30 ml PO ONETIME ONE Stop: 05/05/21 06:37 Last Admin: 05/05/21 19:33 Dose: Not Given Documented by: Ephedrine Sulfate (Ephedrine 50 Mg/Ml Sdv) Confirm Administered Dose 50 mg .ROUTE .STK-MED ONE Stop: 05/05/21 09:13 Glycopyrrolate (Glycopyrrolate 0.2 Mg/Ml Sdv) Confirm Administered Dose 0.4 mg .ROUTE .STK-MED ONE Stop: 05/05/21 09:13 Cefazolin Sodium/Dextrose 2 gm (/ Premix) 50 mls @ 100 mls/hr IV ONETIME ONE Stop: 05/05/21 07:05 Last Admin: 05/05/21 19:33 Dose: Not Given Documented by: Sodium Chloride (Normal Saline) Confirm Administered Dose 20 mls @ as directed .ROUTE .STK-MED ONE Stop: 05/05/21 09:14 Acetaminophen (Ofirmev 1000 Mg/100 Ml) Confirm Administered Dose 100 mls @ as directed .ROUTE .STK-MED ONE Stop: 05/05/21 09:14 Cefazolin Sodium/Dextrose (Ancef 2 Gm/50 Ml) Confirm Administered Dose 50 mls @ as directed .ROUTE .STK-MED ONE Stop: 05/05/21 09:14 Ketorolac Tromethamine (Ketorolac 30 Mg/Ml Sdv) 30 mg IVPUSH Q6H [facility] Stop: 05/06/21 10:01 Last Admin: 05/05/21 18:52 Dose: Not Given Documented by: Ketorolac Tromethamine (Ketorolac 30 Mg/Ml Sdv) 30 mg IVPUSH ONETIME ONE Stop: 05/06/21 11:42 Last Admin: 05/06/21 12:01 Dose: 30 mg Documented by: Ketorolac Tromethamine (Ketorolac 30 Mg/Ml Sdv) Confirm Administered Dose 30 mg .ROUTE .STK-MED ONE Stop: 05/06/21 11:57 Miscellaneous Medication (Phenylephrine Hcl In 0.9% Nacl 1 Mg/10 Ml Syringe) Confirm Administered Dose 1 mg .ROUTE .STK-MED ONE Stop: 05/05/21 09:13 Morphine Sulfate (Morphine Pf 10 Mg/10 Ml Sdv) Confirm Administered Dose 10 mg .ROUTE .STK-MED ONE Stop: 05/05/21 07:29 Ondansetron HCl (Ondansetron 4 Mg/2 Ml Sdv) Confirm Administered Dose 4 mg .ROUTE .STK-MED ONE Stop: 05/05/21 09:13 Oxytocin (Oxytocin 10 Units/1 Ml Sdv) Confirm Administered Dose 30 unit .ROUTE .STK-MED ONE Stop: 05/05/21 12:58 - Infant Interaction Support Person: - Recovery Exam Fundal Tone: Firm Fundal Level: 1 Fingerbreadths Below Umbilicus Fundal Placement: Midline Lochia Amount: Scant, Small Lochia Color: Rubra/Red Perineum Description: Intact, Minimal Bruising/Swelling Episiotomy/Laceration: None Bladder Status: Indwelling Catheter in Place Urinary Elimination: Indwelling Catheter - Exam General: Alert, Oriented Lungs: Normal Respiratory Effort Cardiovascular: Regular Rate, Regular Rhythm GI/Abdominal Exam: Normal Bowel Sounds, Soft. No: Distended, Guarding Extremities: Non-Tender, Pedal Edema (trace). No: Maricel's Sign Skin: Warm, Dry, Intact Wound/Incisions: Dressing Dry and Intact Neurological: No New Focal Deficit Psy/Mental Status: Alert, Normal Affect, Normal Mood - Problem List & Annotations (1) delivery delivered SNOMED Code(s): 130604264 Code(s): O82 - ENCOUNTER FOR DELIVERY WITHOUT INDICATION Status: Acute Current Visit: No - Problem List Review Problem List Initiated/Reviewed/Updated: Yes - My Orders Last 24 Hours: My Active Orders 05/05/21 21:00 Docusate Sodium [Colace] 100 mg PO BID - Assessment Assessment:: POD 1 status post repeat c section - Plan Plan:: Patient is feeling well--ambulating and voiding. She denies orthostatic symptoms. Lochia is minimal. VS are stable. Dressing remains dry through the night after changing yesterday evening. Will resume toradol today. Continue postoperative cares.
[2021-05-06] MEDS: Ibuprofen 800 MG Tab PO PRN (23:28)
[2021-05-07] MEDS: Acetaminophen/oxyCODONE 325-5 MG Tab PO PRN ×2 (06:16→10:29)
[2021-05-07 08:18] VITALS: BP 116/77; PULSE 81
--- NOTE | 2021-05-07 08:21 | PCM.PNPP ---
- General Info Date of Service: 05/07/21 Functional Status: Reports: Pain Controlled, Tolerating Diet, Ambulating, Urinating - Review of Systems General: Reports: Fatigue. Denies: Fever, Weakness Pulmonary: Denies: Shortness of Breath Cardiovascular: Denies: Chest Pain, Palpitations, Lightheadedness Gastrointestinal: Denies: Abdominal Pain, Nausea, Vomiting Genitourinary: Denies: Flank Pain Musculoskeletal: Reports: No Symptoms Skin: Reports: No Symptoms Neurological: Reports: No Symptoms Psychiatric: Reports: No Symptoms - General Info Date of Service: 05/07/21 - Patient Data Vital Signs - Most Recent: Last Vital Signs Temp 35.5 C L 05/07/21 08:00 Pulse 81 05/07/21 08:00 Resp 18 05/07/21 08:00 BP 116/77 05/07/21 08:00 Pulse Ox 97 05/07/21 08:00 Weight - Most Recent: 81.647 kg Lab Results - Last 24 Hours: Laboratory Results - last 24 hr 05/05/21 Range/Units 10:49 Screen NEGATIVE (NEGATIVE) RhIG Candidate? YES Rhogam Indicated YES, BABY RH POS H Med Orders - Current: Current Medications Bisacodyl (Bisacodyl 10 Mg Supp) 10 mg RECTAL ONETIME PRN PRN Reason: Constipation Calcium Carbonate/Glycine (Calcium Carbonate 500 Mg Tab.Chew) 1,000 mg PO Q2HR PRN PRN Reason: Indigestion Last Admin: 05/06/21 04:17 Dose: 1,000 mg Documented by: Diphenhydramine HCl (Diphenhydramine 50 Mg/Ml Sdv) 25 mg IVPUSH Q6H PRN PRN Reason: Itching or Nausea Last Admin: 05/05/21 11:20 Dose: 25 mg Documented by: Docusate Sodium (Docusate Sodium 100 Mg Cap) 100 mg PO BID [facility] Last Admin: 05/06/21 21:57 Dose: 100 mg Documented by: Emollient Ointment (Lanolin 100% Cream 7 Gm Tube) 0 gm TOP ASDIRECTED PRN PRN Reason: Sore Nipples Oxytocin/Sodium Chloride (Oxytocin 30 Unit In Ns 0.9% 500 Ml Premix) 30 unit in 500 mls @ 250 mls/hr IV TITRATE [facility] Lactated Ringer's (Ringers, Lactated) 1,000 mls @ 500 mls/hr IV BOLUS [facility] Last Admin: 05/05/21 07:25 Dose: 999 mls/hr Documented by: Lactated Ringer's (Ringers, Lactated) 1,000 mls @ 125 mls/hr IV ASDIRECTED [facility] Tranexamic Acid 1,000 mg/ (Sodium Chloride) 110 mls @ 660 mls/hr IV ONETIME PRN PRN Reason: Bleeding Ibuprofen (Ibuprofen 800 Mg Tab) 800 mg PO Q8H PRN PRN Reason: Cramping Last Admin: 05/06/21 23:28 Dose: 800 mg Documented by: Methylergonovine Maleate (Methylergonovine 0.2 Mg/1 Ml Amp) 0.2 mg IM ONETIME PRN PRN Reason: Excessive Vaginal Bleeding Misoprostol (Misoprostol 200 Mcg Tab) 1,000 mcg RECTAL ONETIME PRN PRN Reason: excessive bleeding Ondansetron HCl (Ondansetron 4 Mg/2 Ml Sdv) 4 mg IVPUSH Q4H PRN PRN Reason: Nausea/Vomiting Oxycodone/Acetaminophen (Acetaminophen/Oxycodone 325-5 Mg Tab) 1 tab PO Q4H PRN PRN Reason: Pain (severe 7-10) Last Admin: 05/07/21 06:16 Dose: 1 tab Documented by: Oxycodone/Acetaminophen (Acetaminophen/Oxycodone 325-5 Mg Tab) 2 tab PO Q4H PRN PRN Reason: Pain (severe 7-10) Oxytocin (Oxytocin 10 Units/1 Ml Sdv) 10 unit IM ASDIRECTED PRN PRN Reason: Excessive Vaginal Bleeding Sodium Chloride (Sodium Chloride 0.9% 10 Ml Syringe) 10 ml FLUSH ASDIRECTED PRN PRN Reason: Keep Vein Open Sodium Chloride (Sodium Chloride 0.9% 2.5 Ml Syringe) 2.5 ml FLUSH ASDIRECTED PRN PRN Reason: Keep Vein Open Sodium Chloride (Sodium Chloride 0.9% 10 Ml Sdv) 10 ml IV ASDIRECTED PRN PRN Reason: IV Use Discontinued Medications Citric Acid/Sodium Citrate (Citric Acid/Sodium Citrate Solution 30 Ml Cup) 30 ml PO ONETIME ONE Stop: 05/05/21 06:37 Last Admin: 05/05/21 19:33 Dose: Not Given Documented by: Ephedrine Sulfate (Ephedrine 50 Mg/Ml Sdv) Confirm Administered Dose 50 mg .ROUTE .STK-MED ONE Stop: 05/05/21 09:13 Glycopyrrolate (Glycopyrrolate 0.2 Mg/Ml Sdv) Confirm Administered Dose 0.4 mg .ROUTE .STK-MED ONE Stop: 05/05/21 09:13 Cefazolin Sodium/Dextrose 2 gm (/ Premix) 50 mls @ 100 mls/hr IV ONETIME ONE Stop: 05/05/21 07:05 Last Admin: 05/05/21 19:33 Dose: Not Given Documented by: Sodium Chloride (Normal Saline) Confirm Administered Dose 20 mls @ as directed .ROUTE .STK-MED ONE Stop: 05/05/21 09:14 Acetaminophen (Ofirmev 1000 Mg/100 Ml) Confirm Administered Dose 100 mls @ as directed .ROUTE .STK-MED ONE Stop: 05/05/21 09:14 Cefazolin Sodium/Dextrose (Ancef 2 Gm/50 Ml) Confirm Administered Dose 50 mls @ as directed .ROUTE .ST-MED ONE Stop: 05/05/21 09:14 Ketorolac Tromethamine (Ketorolac 30 Mg/Ml Sdv) 30 mg IVPUSH Q6H [facility]ICOLE Stop: 05/06/21 10:01 Last Admin: 05/05/21 18:52 Dose: Not Given Documented by: Ketorolac Tromethamine (Ketorolac 30 Mg/Ml Sdv) 30 mg IVPUSH ONETIME ONE Stop: 05/06/21 11:42 Last Admin: 05/06/21 12:01 Dose: 30 mg Documented by: Ketorolac Tromethamine (Ketorolac 30 Mg/Ml Sdv) Confirm Administered Dose 30 mg .ROUTE .STK-MED ONE Stop: 05/06/21 11:57 Last Admin: 05/06/21 20:54 Dose: Not Given Documented by: Miscellaneous Medication (Phenylephrine Hcl In 0.9% Nacl 1 Mg/10 Ml Syringe) Confirm Administered Dose 1 mg .ROUTE .STK-MED ONE Stop: 05/05/21 09:13 Morphine Sulfate (Morphine Pf 10 Mg/10 Ml Sdv) Confirm Administered Dose 10 mg .ROUTE .STK-MED ONE Stop: 05/05/21 07:29 Ondansetron HCl (Ondansetron 4 Mg/2 Ml Sdv) Confirm Administered Dose 4 mg .ROUTE .STK-MED ONE Stop: 05/05/21 09:13 Oxytocin (Oxytocin 10 Units/1 Ml Sdv) Confirm Administered Dose 30 unit .ROUTE .STK-MED ONE Stop: 05/05/21 12:58 - Infant Interaction Support Person: - Recovery Exam Fundal Tone: Firm Fundal Level: 1 Fingerbreadths Below Umbilicus Fundal Placement: Midline Lochia Amount: Scant Lochia Color: Rubra/Red Perineum Description: Intact, Minimal Bruising/Swelling Episiotomy/Laceration: None Bladder Status: Voiding Urinary Elimination: Indwelling Catheter - Exam General: Alert, Oriented Lungs: Normal Respiratory Effort Cardiovascular: Regular Rate, Regular Rhythm GI/Abdominal Exam: Normal Bowel Sounds, Soft Extremities: Pedal Edema (trace). No: Maricel's Sign Skin: Warm, Dry, Intact Wound/Incisions: No Drainage. No: Erythema Neurological: No New Focal Deficit Psy/Mental Status: Alert, Normal Affect, Normal Mood - Problem List & Annotations (1) delivery delivered SNOMED Code(s): 626763417 Code(s): O82 - ENCOUNTER FOR DELIVERY WITHOUT INDICATION Status: Acute Current Visit: No - Problem List Review Problem List Initiated/Reviewed/Updated: Yes - My Orders Last 24 Hours: My Active Orders 05/07/21 08:18 Ready for Discharge [RC] PER UNIT ROUTINE - Assessment Assessment:: POD 2 status post repeat c section - Plan Plan:: Patient is feeling well. Lochia is minimal. Ambulating without orthostatic symptoms. Would like to go home today. Discharge instructions reviewed. Follow up at [facility] 2 and 6 weeks. To take iron daily for anemia, will reevaluate hemoglobin at PP visit.
[2021-05-07] MEDS: Ibuprofen 800 MG Tab PO PRN (08:32)
[2021-05-07] MEDS: Docusate Sodium 100 MG Cap PO SCH (09:24)
== END 2021-05-07 10:50 | disposition home or self-care (01) | DRG 540 ==
LOC: MW.OB 05:13 → MERGE 05:13 → MW.OB 12:40
PROVIDERS: ADMIT Obstetrics & Gynecology; ATTEND Obstetrics & Gynecology
PROC: 10D00Z1 Extraction of Products of Conception, Low, Open Approach (ICD-10-PCS; principal; 2021-05-05)
DX: O34.211 Maternal care for low transverse scar from previous cesarean delivery (principal); Z37.0 Single live birth; O99.62 Diseases of the digestive system complicating childbirth; K21.9 Gastro-esophageal reflux disease without esophagitis; Z3A.39 39 weeks gestation of pregnancy
CPT/HCPCS: 36415; 59025; 82803; 85014; 85018; 85027; 85460; 86592; 86850; 86900; 86901; A9270-GY; J0131; J0690; J1200; J1885; J2270; J2370; J2405; J2590; J2790; J3490; J7120